=== PATIENT | female | born 1975 | race Two or more races ===

== ENCOUNTER 2017-11-12 16:42 | Emergency (ER) | payer OTHER ==
[~2017-11-12] VITALS: Ht 157.5 cm; Wt 58.8 kg
[2017-11-12 16:48] VITALS: BP 135/86
[2017-11-12] MEDS ORDERED: DIPH,PERTUSS(ACELL),TET VAC/PF 0.5 ML IM-VACC ONE ×2 (17:25→17:30)
== END 2017-11-12 17:50 | disposition home or self-care (01) ==
LOC: ED 17:44
DX: S61.231A Puncture wound without foreign body of left index finger without damage to nail, initial encounter (principal); Z20.9 Contact with and (suspected) exposure to unspecified communicable disease; W46.1XXA Contact with contaminated hypodermic needle, initial encounter; Y93.89 Activity, other specified; Y99.8 Other external cause status; Y92.89 Other specified places as the place of occurrence of the external cause
CPT/HCPCS: 36415; 86705; 86706; 86803; 87340; 87806; 90471; 90715; G0475